=== PATIENT | male | born 1985 | race American Indian/Alaskan Native ===

== ENCOUNTER 2020-08-13 11:36 | Outpatient (CLI) | payer BC ==
--- NOTE | 2020-08-13 14:33 | XRay Report ---
LEFT WRIST 4 VIEWS INDICATION: LEFT WRIST PAIN. COMPARISON: None. 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 No acute fracture or bon e lesion is appreciated. Mild soft tissue swelling is noted. If further evaluation is needed, CT is r ecommended. Signer Name: Perez Montoya Jr, MD Signed: 08/13/2020 2:28 PM Workstation Name: [id number]
== END 2020-08-13 11:37 | disposition home or self-care (01) ==
LOC: XRAY 11:36
PROVIDERS: ATTEND Orthopaedic Surgery
DX: M19.032 Primary osteoarthritis, left wrist (principal)